=== PATIENT | female | born 1955 | race Caucasian/White ===

== ENCOUNTER 2017-11-20 17:31 | Emergency (ER) | payer MEDICARE, MEDICAID ==
[2017-11-20] MEDS ORDERED: NS 0.9% 1000 ML* 1,000 ML IV ONE (18:02)
[2017-11-20 18:19] LABS: ABS Basophils 0 10^3/ul (0-0.2); ABS Eosinophils 0.4 10^3/ul (0-0.6); ABS Lymphocytes 4.1 10^3/ul (1.0-4.8); ABS Monocytes 0.5 10^3/ul (0-0.8); ABS Neutrophils 3.2 10^3/ul (1.5-7.7); ABS Nucleated RBC 0 10^3/ul; Eosinophil % 4.4 % (0-6); Hematocrit 30 % (35-47); Lymphocyte % 49.3 % (25-47); Mean Corpuscular HGB Conc 33 g/dl (31-36); Mean Corpuscular Hemoglobin 33 pg (27-31); Mean Corpuscular Volume 99 fL (80-97); Mean Platelet Volume 6.5 um3 (7.4-10.4); Nucleated Red Blood Cells % 0.1; Platelet Count 252 10^3/ul (150-450); Red Blood Count 3.04 10^6/ul (4.0-5.4); Red Cell Distribution Width 14 % (10.5-15); White Blood Count 8.3 10^3/ul (3.5-10.8)
[2017-11-20 18:28] LABS: INR 0.94 (0.77-1.02)
[2017-11-20 18:36] LABS: EGFR Non-African American 49.6 (>60)
[2017-11-20 19:32] VITALS: BP 108/58
--- NOTE | 2017-11-20 19:40 | ED ---
Lamin Uriarte Jennifer, scribed for Urban Melissa on 11/20/17 at 1811 . Complex/Multi-Sys Presentation - HPI Summary HPI Summary: The patient is a 62 year old female who was sent by her PCP for high potassium levels this morning. The patient reports she was at her doctors office for a routine checkup and got a blood test done. The patient additionally complains that her blood pressure has always gone back and forth between high and low. The patient denies swelling of the legs and any kidney problems, heart problems , or lung problems. She denies using O2 at home. - History Of Current Complaint Chief Complaint: EDGeneral Time Seen by Provider: 11/20/17 17:49 Hx Obtained From: Patient Onset/Duration: Sudden Onset, Lasting Hours, Still Present Timing: Constant Severity Currently: None Severity Initially: Mild Associated Signs And Symptoms: Positive: Other - high potassium, high and low blood pressure. NEGATIVE: kidney, heart, and lung problems, swelling of legs - Allergies/Home Medications Allergies/Adverse Reactions: Allergies Allergy/AdvReac Type Severity Reaction Status Date / Time Penicillins Allergy Unknown Verified 11/20/17 17:34 Reaction Details Home Medications: Home Medications Atorvastatin* [Lipitor*] 10 mg PO DAILY 11/20/17 [History Confirmed 11/20/17] BuPROPion XL* [Bupropion XL*] 300 mg PO DAILY 11/20/17 [History Confirmed ] DULoxetine DR CAP* [Cymbalta CAP*] 30 mg PO DAILY 11/20/17 [History Confirmed ] DULoxetine DR CAP* [Cymbalta CAP*] 60 mg PO DAILY 11/20/17 [History Confirmed ] Folic Acid TAB* [Folvite TAB*] 1 mg PO DAILY 11/20/17 [History Confirmed ] Gabapentin CAP(*) [Neurontin 300 CAP(*)] 600 mg PO TID 11/20/17 [History Confirmed 11/20/17] Mirtazapine TAB* [Remeron TAB*] 45 mg PO BEDTIME 11/20/17 [History Confirmed ] Naltrexone TAB* 50 mg PO DAILY 11/20/17 [History Confirmed 11/20/17] Thiamine TAB* [Vitamin B-1 TAB*] 100 mg PO DAILY 11/20/17 [History Confirmed ] dilTIAZem HCl [Cartia Xt] 180 mg PO DAILY 11/20/17 [History Confirmed 11/20/17] traZODone TAB* [Desyrel TAB*] 50 mg PO BEDTIME 11/20/17 [History Confirmed 11/20] PMH/Surg Hx/FS Hx/Imm Hx Musculoskeletal History: Denies: Hx Scoliosis Neurological History: Denies: Hx Headaches, Other Neuro Impairments/Disorders Infectious Disease History: No Infectious Disease History: Denies: Traveled Outside the [place] in Last 30 Days - Family History Known Family History: Negative: Renal Disease - Social History Alcohol Use: Occasionally Substance Use Type: Reports: None Smoking Status (MU): Heavy Every Day Tobacco Smoker Review of Systems Positive: Other - high potassium Cardiovascular: Negative - heart problems Positive: Other - high and low blood pressure Respiratory: Negative - Lung problems Genitourinary: Negative - Kidney problems Negative: Edema All Other Systems Reviewed And Are Negative: Yes Physical Exam - Summary Physical Exam Summary: Appearance: Well appearing, no pain distress Skin: warm, dry, reflects adequate perfusion Head/face: normal Eyes: EOMI, ADELIA ENT: normal Neck: supple, non-tender Respiratory: CTA, breath sounds present Cardiovascular: RRR, pulses symmetrical ~ Abdomen: non-tender, soft Bowel: present Musculoskeletal: normal, strength/ROM intact Neuro: normal, sensory motor intact, A&Ox3 Triage Information Reviewed: Yes Vital Signs On Initial Exam: Initial Vitals Temp Pulse Resp BP Pulse Ox 98.2 F 97 16 115/62 98 11/20/17 17:34 11/20/17 17:34 11/20/17 17:34 11/20/17 17:34 11/20/17 17:34 Vital Signs Reviewed: Yes Diagnostics - Vital Signs Vital Signs Temp Pulse Resp BP Pulse Ox 11/20/17 17:34 98.2 F 97 16 115/62 98 - Laboratory Lab Results: Lab Results 11/20/17 11/20/17 11/20/17 Range/Units 18:10 18:10 18:10 WBC 8.3 (3.5-10.8) 10^3/ul RBC 3.04 L (4.0-5.4) 10^6/ul Hgb 10.0 L (12.0-16.0) g/dl Hct 30 L (35-47) % MCV 99 H (80-97) fL MCH 33 H (27-31) pg MCHC 33 (31-36) g/dl RDW 14 (10.5-15) % Plt Count 252 (150-450) 10^3/ul MPV 6.5 L (7.4-10.4) um3 Neut % (Auto) 39.2 (38-83) % Lymph % (Auto) 49.3 H (25-47) % [place] % (Auto) 6.6 (0-7) % Eos % (Auto) 4.4 (0-6) % Baso % (Auto) 0.5 (0-2) % Absolute Neuts (auto) 3.2 (1.5-7.7) 10^3/ul Absolute Lymphs (auto) 4.1 (1.0-4.8) 10^3/ul Absolute Monos (auto) 0.5 (0-0.8) 10^3/ul Absolute Eos (auto) 0.4 (0-0.6) 10^3/ul Absolute Basos (auto) 0 (0-0.2) 10^3/ul Absolute Nucleated RBC 0 10^3/ul Nucleated RBC % 0.1 INR (Anticoag Therapy) 0.94 (0.77-1.02) APTT 29.4 (26.0-36.3) seconds Sodium 139 (139-145) mmol/L Potassium 4.3 (3.5-5.0) mmol/L Chloride 108 (101-111) mmol/L Carbon Dioxide 21 L (22-32) mmol/L Anion Gap 10 (2-11) mmol/L BUN 28 H (6-24) mg/dL Creatinine 1.11 H (0.51-0.95) mg/dL Est GFR ( Amer) 63.8 (>60) Est GFR (Non-Af Amer) 49.6 (>60) BUN/Creatinine Ratio 25.2 H (8-20) Glucose 74 (70-100) mg/dL Calcium 8.7 (8.6-10.3) mg/dL Total Bilirubin 0.20 (0.2-1.0) mg/dL AST 17 (13-39) U/L ALT 10 (7-52) U/L Alkaline Phosphatase 49 (34-104) U/L Troponin I 0.00 (<0.04) ng/mL Total Protein 6.2 L (6.4-8.9) g/dL Albumin 3.5 (3.2-5.2) g/dL Globulin 2.7 (2-4) g/dL Albumin/Globulin Ratio 1.3 (1-3) Serum Alcohol 225 H (<10) mg/dL Result Diagrams: 11/20/17 18:10 11/20/17 18:10 Lab Statement: Any lab studies that have been ordered have been reviewed, and results considered in the medical decision making process. - EKG 18:21 Cardiac Rate: NL EKG Rhythm: Sinus Rhythm - 89 BPM EKG Comparison: No Significant Change Complex Multi-Symp Course/Dx Course Of Treatment: The patient is a 62 year old female who was sent by her PCP for high potassium levels this morning. In the ED course the patient was given IV fluids. Bloodwork was obtained. EKG was obtained. The patient has no hyperkalemia and it was a lab error. Patient is instructed to follow up with PCP in 3 days. - Diagnoses Provider Diagnoses: Encounter for medical screening examination Discharge - Sign-Out/Discharge Documenting (check all that apply): Discharge - Discharge Plan Condition: Stable Disposition: HOME Patient Education Materials: Hyperkalemia (ED) Referrals: Anika Hood MD [Primary Care Provider] - 3 Days Additional Instructions: Follow up with your primary care physician in three days. Return to the emergency department for any new or worsening symptoms. - Billing Disposition and Condition Condition: STABLE Disposition: HOME The documentation as recorded by the Lamin panda Jennifer accurately reflects the service I personally performed and the decisions made by , Urban Melissa.
== END 2017-11-20 19:32 | disposition home or self-care (01) ==
LOC: ED 17:31
DX: E87.5 Hyperkalemia (principal); F17.210 Nicotine dependence, cigarettes, uncomplicated; R03.0 Elevated blood-pressure reading, without diagnosis of hypertension
CPT/HCPCS: 36415; 80053; 80320; 84484; 85025; 85610; 85730; 93005; 99282; G0480